=== PATIENT | female | born 1980 | race Caucasian/White ===

== ENCOUNTER 2018-02-22 08:03 | Day surgery (SDC) | payer OTHER ==
--- NOTE | 2018-02-21 15:31 | HP ---
DATE OF SURGERY: 02/22/2018 ADMISSION DIAGNOSIS: Ventral hernia. ANTICIPATED PROCEDURE: Ventral hernia with mesh. HISTORY OF PRESENT ILLNESS: A patient with moderate sized symptomatic ventral hernia located 2 inches above the umbilicus. PAST MEDICAL HISTORY: ALLERGIES: NONE. MEDICATIONS: BCP. PAST SURGICAL HISTORY: Appendectomy. Umbilical herniorrhaphy. SOCIAL HISTORY: Negative. FAMILY HISTORY: Negative. REVIEW OF SYSTEMS: Negative. PHYSICAL EXAMINATION: VITAL SIGNS: Normal. CHEST: Clear. COR: Regular. ABDOMEN: Ventral hernia. IMPRESSION: Ventral hernia. PLAN: Repair.
[~2018-02-22 08:03] MED LIST: CEFAZOLIN 2 GM-D5W BAG** 2 GM/50 ML ML IV ONE; CEFAZOLIN 2 GM-D5W BAG** 2 GM/50 ML ML IV SCH; Lactated Ringers 1,000 ML IV ONE; Lactated Ringers 1,000 ML IV SCH; Sensorcaine 0.25% 10 ML ONE
[2018-02-22] MEDS ORDERED: Versed 2 MG/2 ML Injection IV ONE (08:04)
[2018-02-22] MEDS ORDERED: TORAdol 30 mg Injection IV ONE (08:04)
[2018-02-22] MEDS ORDERED: Zemuron 100 MG/10 ML IV ONE (08:04)
[2018-02-22] MEDS ORDERED: Quelicin Fliptop 200 MG/10 ML IV ONE (08:04)
[2018-02-22] MEDS ORDERED: DIPRIVAN 200 MG/20 ML IV ONE (08:04)
[2018-02-22] MEDS ORDERED: SUBLIMAZE 250 MCG/5 ML IV ONE (08:04)
[2018-02-22] MEDS ORDERED: Zofran 4 MG/2 ML VIAL IV ONE (08:04)
[2018-02-22] MEDS ORDERED: BRIDION 200MG/2ML IV ONE (08:04)
[2018-02-22] MEDS ORDERED: KEFZOL 1 GM ONE (10:45)
[2018-02-22] MEDS ORDERED: SUBLIMAZE 100 MCG/2 ML ONE (11:33)
--- NOTE | 2018-02-22 11:51 | OP ---
SURGERY DATE/TIME: 02/22/2018 1027 PREOPERATIVE DIAGNOSIS: Symptomatic ventral hernia. POSTOPERATIVE DIAGNOSIS: Ventral hernia incarcerated with omentum. PROCEDURES: 1) Ventral herniorrhaphy with mesh. 2) Partial omentectomy. SURGEON: Andrea Cam M.D. SCHOOL CUSTODIAN: Lon Mckinney M.D. ANESTHESIA: General. COMPLICATIONS: None. CONDITION: Stable. INDICATION: A patient with symptomatic ventral hernia about 1.5 inch above the umbilicus. Marked preoperatively. DESCRIPTION OF PROCEDURE: Taken to surgery. General anesthetic. Routine prep and drape. Curvilinear incision. 0.25% Marcaine. Defect was 3 cm. There was incarcerated omentum this was taken with clamps and ties of 2-0 Vicryl and a partial omentectomy was performed. Hemostasis satisfactory. The residual omental bud was then reduced. The fascial edges were clean. Bicomponent mesh small was placed, pulled up and secured in four quadrants. Four intra-quadrant sutures with 0 Prolene. Good approximation and hemostasis. Subcutaneous tissue dry, closed with 3-0 Vicryl, 4-0 Vicryl and Steri-Strips. The patient tolerated the procedure satisfactorily. No family was present in the holding area.
[2018-02-22] MEDS ORDERED: NORCO 7.5/325 MG TAB PO PRN (12:09)
[2018-02-22 16:00] VITALS: O2SAT 99
[2018-02-22 16:07] VITALS: BP 138/72; PULSE 85
== END 2018-02-22 13:05 | disposition home or self-care (01) ==
LOC: SDC 08:03
PROVIDERS: ATTEND Surgery
DX: K43.6 Other and unspecified ventral hernia with obstruction, without gangrene (principal)
CPT/HCPCS: 84703; 88302; 94250; J0330; J0690; J1885; J2250; J2405; J2704; J3010; L0625; A9270-GY